=== PATIENT | female | born 1960 | race Caucasian/White ===

== ENCOUNTER → 2018-04-20 | Day surgery (SDC) | payer OTHER ==
--- NOTE | 2018-04-23 16:26 | PATH ---
Surgical Pathology Report Patient Name: JASKARAN HERNÁNDEZ [facility]. Rec. #: [id number] /Age/Gender: 1960 (Age: 57) / F Account: [id number] [facility] Taken: 04/20/2018 Received: 04/20/2018 Reported: 04/23/2018 Physicians: Ziggy Tim Specimen(s) Received A: BREAST MASS RIGHT SUBAREOLAR/RETRO B: RIGHT AXILLA MASS Clinical History Palpable mass Mammographic findings: Highly suspicious/malignant Ultrasound findings: Highly suspicious/malignant 3.4 cm Mass right retro/nipple/subareolar 2 cm right axilla mass Final Diagnosis A. BREAST, MASS, RIGHT, RETRO/SUBAREOLAR, ULTRASOUND GUIDED CORE BIOPSY: INVASIVE DUCTAL CARCINOMA, POORLY DIFFERENTIATED, AT LEAST 1.2 CM IN THIS MATERIAL. B. AXILLARY LYMPH NODE, RIGHT, ULTRASOUND GUIDED CORE BIOPSY: POORLY DIFFERENTIATED CARCINOMA, MORPHOLOGICALLY SIMILAR TO PART A. Results of Estrogen Receptor (ER) and Progesterone Receptor (TX) studies performed on block "A" at [facility] are as follows: ER (clone [id number] mouse monoclonal antibody by [employer]): <1% nuclear staining with weak intensity (Negative). TX (clone16 mouse monoclonal antibody by [employer]): <1% nuclear staining with weak intensity (Negative). Positive and negative controls (internal if applicable) show appropriate results. Formalin fixation and cold ischemic times are within current ASCO/CAP recommendations for ER, TX and Her2 testing. Comment: Immunohistochemical stain performed and interpreted at [facility] show E-Cadherin is positive, supportive of ductal phenotype. Results of Her2 (IHC) & Ki-67 studies will be reported as an addendum. Findings discussed with Dr. Villagomez. Electronically Signed Keisha Byers M.D. Addendum Reported: 04/24/2018 Addendum Diagnosis Results of Her2 (IHC) & Ki-67 studies performed on block "A" at [place], [place] ([id number]) are as follows: Her2 IHC (EP3 from [employer], formerly known as [id number], using [employer] Polymer Refine detection kit): 3+ (Positive). Ki-67: ~40% (High proliferative index). Positive and negative controls (internal if applicable) show appropriate results. Keisha Byers M.D. Gross Description A. Received in formalin labeled "right subareolar," are 4 garduno-yellow, cylindrical portions of fibroadipose tissue ranging from 0.3-1.7 cm in length and averaging 0.1 cm in diameter. The specimens are submitted in toto in one cassette. B. Received in formalin labeled "right axilla," are 2 garduno-yellow, cylindrical portions of fibroadipose tissue averaging 1.2 cm in length and 0.1 cm in diameter. The specimens are submitted in toto in one cassette. Time to formalin fixation: Less than one minutes Total formalin fixation time: Approximately 7 hours. 04/20/201804/20/2018
== END | disposition home or self-care (01) ==
LOC: EDSTATUS 08:00 → JRADUS 08:03 → JRADUS-SUR 10:06
PROVIDERS: ATTEND Specialist
PROC: 0HBT3ZX Excision of Right Breast, Percutaneous Approach, Diagnostic (ICD-10-PCS; principal; 2018-04-20)
DX: C50.811 Malignant neoplasm of overlapping sites of right female breast (principal); C77.3 Secondary and unspecified malignant neoplasm of axilla and upper limb lymph nodes
CPT/HCPCS: 19083; 19084; 38505; 76641-TC-50; 77065-TC-50; 87899; 88305-TC; 88341-TC; 88342-TC; A4648